=== PATIENT | female | born 1930 | race Caucasian/White ===

== ENCOUNTER → 2017-03-26 | Outpatient (CLI) | payer OTHER ==
[~2017-03-26] MED LIST: ACET-1311 PO; ASPCH81X PO; ATOR-24 PO; ATRINS NEB; BENZ1LOZ PO; CALC250T2 PO; CHOL100010 PO; CLIN150C PO; CYCL0.05 OPB; GEMF600T3 PO; GUAI1TAB55 PO; LEVO1TAB35 PO; LEVO50TA6 PO; LISI-789 PO; LSN25 PO; MAGN64TA4 PO; METO25TA56 PO; MISCCAP80 PO; MOME100A INH; MULTCHW PO; MULTTAB52 PO; NTRGSL/4 UT; NXM/40 PO; OMEG10007 PO; OYST1TAB PO; PLV75 PO; POLY335040 PO; PRED-301 PO; PRLSR20 PO; SALI0.657 NAE; SENN1TAB65 PO; SLWMEC PO; TIOT1AER2 INH; TRAM-10 PO; VALA1TAB PO; VENL-273 PO; VENL37.593 PO
[2017-03-26 01:40] LABS: URINE APPEARANCE CLOUDY (CLEAR); URINE BILIRUBIN NEG (NEG); URINE COLOR YELLOW; URINE EPITHELIAL CELL AUTO 20-30 /lpf (0-5); URINE NITRITE NEG (NEG); URINE PH >= 9.0 (4.5-7.5); URINE SPECIFIC GRAVITY 1.015 (1.000-1.030); UROBILINOGEN NEG (NEG)
[2017-03-26 01:42] LABS: MANUAL MICROSCOPIC REQUIRED? NO; REVIEW REQ? NO
== END ==
LOC: C.LABCC 12:50
PROVIDERS: ATTEND Internal Medicine
DX: R35.0 Frequency of micturition (principal); R30.0 Dysuria

== ENCOUNTER → 2017-06-15 | Outpatient (CLI) | payer OTHER ==
[~2017-06-15] MED LIST changes: -ACET-1311 PO; -CALC250T2 PO; +CYCL0.05 OP; -CYCL0.05 OPB; -GUAI1TAB55 PO; -LEVO1TAB35 PO; -LEVO50TA6 PO; -LISI-789 PO; -MAGN64TA4 PO; -MULTTAB52 PO; -NTRGSL/4 UT; -PRLSR20 PO; -SALI0.657 NAE; -SENN1TAB65 PO; -TIOT1AER2 INH; -VENL37.593 PO
[2017-06-15 13:29] LABS: URINE APPEARANCE TURBID (CLEAR); URINE BILIRUBIN NEG (NEG); URINE COLOR YELLOW; URINE EPITHELIAL CELL AUTO 0-5 /lpf (0-5); URINE NITRITE NEG (NEG); URINE PH 6.5 (4.5-7.5); URINE SPECIFIC GRAVITY 1.013 (1.000-1.030); UROBILINOGEN NEG (NEG)
[2017-06-15 13:37] LABS: MANUAL MICROSCOPIC REQUIRED? NO; REVIEW REQ? YES
== END ==
LOC: C.LABCC 12:29
PROVIDERS: ATTEND Internal Medicine
DX: R30.0 Dysuria (principal)

== ENCOUNTER → 2017-08-25 | Outpatient (CLI) | payer OTHER ==
[2017-08-25 10:02] LABS: ALT/SGPT 27 U/L (12-78); BLOOD UREA NITROGEN 17 mg/dl (7-18); BUN/CREATININE RATIO 24.6 (10-20); CALCIUM 9.1 mg/dl (8.5-10.1); CARBON DIOXIDE 28 mmol/L (21-32); CHLORIDE 105 mmol/L (98-107); GLUCOSE 112 mg/dl (70-99); POTASSIUM 4.1 mmol/L (3.5-5.1); SODIUM 140 mmol/L (136-145)
[2017-08-25 10:05] LABS: ALB/GLOB RATIO 0.7 (0.9-2); ALKALINE PHOSPHATASE 80 U/L (45-117); AST/SGOT 16 U/L (15-37)
== END ==
LOC: C.LABCC 08:58
PROVIDERS: ATTEND Internal Medicine
DX: I10 Essential (primary) hypertension (principal)

== ENCOUNTER → 2017-08-27 | Outpatient (CLI) | payer OTHER ==
[2017-08-27 08:14] LABS: BASO % 0.4 %; BASO ABS # 0.03 K/uL (0-0.2); COMPLETE YES; EOS % 5.4 %; HEMATOCRIT 37.7 % (37-47); IG% 0.3 %; LYMPH % 22.6 %; LYMPH ABS # 1.51 K/uL (1.2-3.4); MEAN CELL VOLUME 81.4 fL (80-100); MEAN CORPUSCULAR HEMOGLOBIN 24.4 pg (25-34); MEAN PLATELET VOLUME 10.2 fL (7.4-10.4); MONO % 7.8 %; NEUT % 63.5 %; PLATELET COUNT 328 K/uL (130-400); RED BLOOD COUNT 4.63 M/uL (4.2-5.4); WHITE BLOOD COUNT 6.67 K/uL (4.8-10.8)
[2017-08-27 08:22] LABS: ALT/SGPT 30 U/L (12-78); BLOOD UREA NITROGEN 16 mg/dl (7-18); BUN/CREATININE RATIO 21.6 (10-20); CALCIUM 9.2 mg/dl (8.5-10.1); CARBON DIOXIDE 27 mmol/L (21-32); CHLORIDE 105 mmol/L (98-107); CHOLESTEROL 134 mg/dl (0-200); CREATININE 0.76 mg/dl (0.60-1.20); GLUCOSE 113 mg/dl (70-99); POTASSIUM 4.2 mmol/L (3.5-5.1); SODIUM 141 mmol/L (136-145)
[2017-08-27 08:32] LABS: ALB/GLOB RATIO 0.7 (0.9-2); ALKALINE PHOSPHATASE 98 U/L (45-117); AST/SGOT 20 U/L (15-37); HDL CHOLESTEROL 45 mg/dl; LDL CHOLESTEROL CALCULATED 53 mg/dl; TRIGLYCERIDES 180 mg/dl (0-150); VERY LOW DENSITY LIPOPROT CALC 36 mg/dl
== END ==
LOC: C.LABCC 07:43
PROVIDERS: ATTEND Internal Medicine
DX: E78.5 Hyperlipidemia, unspecified (principal); I25.10 Atherosclerotic heart disease of native coronary artery without angina pectoris

== ENCOUNTER 2017-10-09 01:20 | Inpatient (IN) | payer OTHER ==
[~2017-10-09] VITALS: Ht 152.4 cm; Wt 70.6 kg
[~2017-10-09 01:20] MED LIST changes: -CYCL0.05 OP; +CYCL0.05 OPB
--- NOTE | 2017-10-09 02:39 | EMERGENCY ROOM VISIT NOTE ---
History Report prepared by Samaria: Masoud Sawant Under the Supervision of: Dr. Hazel Guerrero D.O. First contact with patient: 02:20 Chief Complaint: VOMITING Stated Complaint: COUGHING UP BLOOD Nursing Triage Summary: Coughed up a small amount of blood tonight. History of Present Illness The patient is a 87 year old female who presents to the Emergency Room with complaints of hemoptysis that began this morning. Yesterday, the patient was feeling at baseline. However, further in day she began to feel nauseated. She then began to cough up blood and had one episode of vomiting after her coughing spell. Her hemoptysis has been persistent since. She denies any fevers, chills, chest pain, shortness of breath, or abdominal pain. She has past medical history of pneumonia and a previous [place]. She also is having left calf pain. She denies any history of blood clots in her legs or lungs. Source of History: patient Onset: this morning Position: other (Respiratory System) Symptom Intensity: moderate Quality: other (Hemoptysis) Timing: other (Persistent) Associated Symptoms: + nausea, + vomiting, No fevers, No chills, No chest pain, No SOB, No abdominal pain Note: She has left calf tenderness. Review of Systems See HPI for pertinent positives & negatives. A total of 10 systems reviewed and were otherwise negative. Past Medical & Surgical Medical Problems: (1) ACS (acute coronary syndrome) (2) Chest tightness (3) Irritable bowel syndrome (4) Pneumonia (5) Rheumatoid arthritis (6) SVT (supraventricular tachycardia) (7) Vertigo Family History Cancer FHx: hypertension Heart disease Social History Smoking Status: Never Smoker Smokeless Tobacco Use: No Drug Use: none Marital Status: single Housing Status: lives with family Occupation Status: retired Current/Historical Medications Scheduled Acetaminophen (Tylenol), 650 MG PO QPM Aspirin (Aspirin Chewable), 81 MG PO DAILY Atorvastatin (Lipitor), 40 MG PO DAILY Calcium Carbonate-Vitamin D (Oyst-Phillip D), 1 TAB PO DAILY Cyclosporine Oph 0.05% (Restasis Oph 0.05%), 1 DROP OPB AMHS Guaifenesin Ext Rel (Mucinex Ext Rel), 600 MG PO Q12 Levothyroxine Sodium (Levothyroxine Sodium), 50 MCG PO DAILY Lisinopril (Zestril), 2.5 MG PO DAILY Magnesium Chloride (Mag64), 535 MG PO BID Metoprolol Tartrate (Lopressor) (Lopressor), 25 MG PO BID Mometasone Furoate-Formoterol (Dulera 100/5 Mcg), 2 PUFFS INH BID Multiple Vitamins W/ Minerals (Cerovite Senior), 1 TAB PO DAILY Nitroglycerin (Nitrostat), 0.4 MG UT PRN Omeprazole (Prilosec), 20 MG PO BID Polyethylene (Miralax Powder Packet), 17 GM PO Q2D Saline ([place]), 1 SPRY IRVING PRN Sennosides-Docusate Sodium (Senna Plus), 1 TAB PO BID Tiotropium [place] (Spiriva Respimat), 2 PUFFS INH QD Venlafaxine Hcl (Venlafaxine Extended Rel), 37.5 MG PO DAILY Scheduled PRN Acetaminophen (Tylenol), 650 MG PO Q8 PRN for MILD PAIN Allergies Coded Allergies: Penicillins (Verified Allergy, Unknown, HIVES, cefepime/rocephin in past ok, 01/18/16) Terfenadine (Verified Allergy, Unknown, 01/17/16) Physical Exam Vital Signs Date Time Temp Pulse Resp B/P (MAP) Pulse Ox O2 Delivery O2 Flow Rate FiO2 10/09/17 07:03 93 18 129/69 91 Nasal Cannula 2.0 10/09/17 05:25 96 20 145/68 95 Nasal Cannula 2.0 10/09/17 03:49 89 16 120/46 95 Nasal Cannula 2.0 10/09/17 02:34 88 21 124/65 95 Nasal Cannula 2.0 10/09/17 01:35 96 Nasal Cannula 2.0 10/09/17 01:35 91 Room Air 10/09/17 01:27 37.1 97 24 138/67 91 Nasal Cannula 2.0 10/09/17 01:25 94 Physical Exam HEENT: Head - normocephalic and atraumatic Pupils are equal, round, and reactive to light. Extraocular eye muscles are intact, and sclera are anicteric. Nose - moist nasal mucosa without discharge. Mouth - moist buccal mucosa. Oropharynx is nonerythematous and there is no tonsillar exudate or edema noted. Neck: Supple; no JVD, nuchal rigidity, cervical lymphadenopathy. Heart: Regular rate and rhythm. There is a normal S1 and S2 with no murmurs, clicks, or gallops appreciated. Lungs: Diminished breath sounds to the entire right lung with rhonchi to the right lung base. Abdomen: Soft, completely nontender, nondistended, with good bowel sounds. There are no palpable pulsatile masses or hepatosplenomegaly. There is no guarding, rigidity, or rebound noted. Extremities: Tenderness to the left calf. No evidence of cyanosis, clubbing, or edema. There are easily palpable peripheral pulses. Skin: warm and dry with good turgor and no rashes. Medical Decision & Procedures ER Provider Diagnostic Interpretation: Radiology results as stated below per my review and the radiologist's interpretation: CHEST 2 VIEWS ROUTINE CLINICAL HISTORY: 87 years-old Female presenting with eval for pneumonia. TECHNIQUE: Portable upright AP view of the chest was obtained. COMPARISON: 01/17/2016. FINDINGS: Atherosclerosis of aortic arch. Cardiac silhouette normal in size. Bandlike opacities at the perihilar right lung and left lung base not definitely changed from prior. Suggestion of minimal increased opacity at the paramediastinal right lung base. Increased opacity also suggested at the right apex Overall mildly low lung volumes with hypoventilatory changes. Degenerative changes of the left glenohumeral joint and spine with scoliotic curvature. Upper abdomen normal. IMPRESSION: 1. Chronic right perihilar and left basilar opacities likely scarring. However, apparent new right paramediastinal basilar opacity raises concern for new consolidation/pneumonia. Right apical opacity may represent scarring. 2. Mildly low lung volumes. Electronically signed by: Thee Thorpe M.D. 10/09/2017 7:12 AM Dictated Date/Time: 10/09/2017 7:09 AM US VENOUS LEFT LOWER EXTREMITY: No evidence of deep venous thrombosis. Limited evaluation of calf vessels. Radiologist: Sugey Stephens M.D. CTA CHEST: Compared to 01/18/16. No evidence of pulmonary embolism or aortic dissection. Patchy bilateral scarring/atelectasis or pneumonitis. Mild peribronchial thickening. Areas of consolidation may be related to atelectasis or pneumonia. Followup imaging to exclude underlying mass if indicated. No pneumothorax or pleural effusion. Nonspecific mediastinal and hilar lymph nodes. Moderate hiatal hernia. Distended gallbladder with gallstones. Thyroid nodules. Radiologist: Sugey Stephens M.D. Laboratory Results 10/09/17 01:30 Red Blood Count 4.21, Mean Corpuscular Volume 79.8, Mean Corpuscular Hemoglobin 24.7, Mean Corpuscular Hemoglobin Concent 31.0, Mean Platelet Volume 10.4, Neutrophils (%) (Auto) 81.3, Lymphocytes (%) (Auto) 9.3, Monocytes (%) (Auto) 6.5, Eosinophils (%) (Auto) 2.5, Basophils (%) (Auto) 0.1, Neutrophils # (Auto) 8.44, Lymphocytes # (Auto) 0.97, Monocytes # (Auto) 0.68, Eosinophils # (Auto) 0.26, Basophils # (Auto) 0.01 10/09/17 01:30 Test 10/09/17 01:30 10/09/17 02:54 White Blood Count 10.39 K/uL (4.8-10.8) Red Blood Count 4.21 M/uL (4.2-5.4) Hemoglobin 10.4 g/dL (12.0-16.0) Hematocrit 33.6 % (37-47) Mean Corpuscular Volume 79.8 fL (80-100) Mean Corpuscular Hemoglobin 24.7 pg (25-34) Mean Corpuscular Hemoglobin Concent 31.0 g/dl (32-36) Platelet Count 254 K/uL (130-400) Mean Platelet Volume 10.4 fL (7.4-10.4) Neutrophils (%) (Auto) 81.3 % Lymphocytes (%) (Auto) 9.3 % Monocytes (%) (Auto) 6.5 % Eosinophils (%) (Auto) 2.5 % Basophils (%) (Auto) 0.1 % Neutrophils # (Auto) 8.44 K/uL (1.4-6.5) Lymphocytes # (Auto) 0.97 K/uL (1.2-3.4) Monocytes # (Auto) 0.68 K/uL (0.11-0.59) Eosinophils # (Auto) 0.26 K/uL (0-0.5) Basophils # (Auto) 0.01 K/uL (0-0.2) RDW Standard Deviation 53.7 fL (36.4-46.3) RDW Coefficient of Variation 18.4 % (11.5-14.5) Immature Granulocyte % (Auto) 0.3 % Immature Granulocyte # (Auto) 0.03 K/uL (0.00-0.02) Anion Gap 7.0 mmol/L (3-11) Est Creatinine Clear Calc Drug Dose 1.9 ml/min Estimated GFR () 91.2 Estimated GFR (Non- 78.7 BUN/Creatinine Ratio 25.2 (10-20) Calcium Level 8.4 mg/dl (8.5-10.1) Total Bilirubin 0.4 mg/dl (0.2-1) Aspartate Amino Transf (AST/SGOT) 20 U/L (15-37) Alanine Aminotransferase (ALT/SGPT) 31 U/L (12-78) Alkaline Phosphatase 92 U/L (45-117) Troponin I < 0.015 ng/ml (0-0.045) Pro-B-Type Natriuretic Peptide 197 pg/ml (0-1800) Total Protein 6.6 gm/dl (6.4-8.2) Albumin 2.8 gm/dl (3.4-5.0) Globulin 3.8 gm/dl (2.5-4.0) Albumin/Globulin Ratio 0.7 (0.9-2) D-Dimer 1730 ug/L FEU (0-500) Laboratory results per my review. Medications Administered Medications (Trade) Dose Ordered Sig/Jose Route Start Time Stop Time Status Last Admin Dose Admin Levofloxacin (Levaquin / D5W) 750 mg NOW STAT IV 10/09/17 06:48 10/09/17 06:49 DC 10/09/17 06:59 750 MG Procedure Levofloxacin 750 mg IV ED Course 0220: Past medical records reviewed. The patient was evaluated in room A2. A complete history and physical exam was performed. The patient had chest x-ray. The patient had evidence of pneumonia on chest x-ray but continued with hemoptysis and had a positive d-dimer. She went for CT scan of her chest 0336: I reassessed the patient at this time. She is more comfortable at this time. 0648: I reviewed the results of the CT with the patient and her family. Ordered Levofloxacin 750 mg IV 0721: Upon reevaluation, I discussed findings and results with her. She verbalized agreement of the treatment plan. I spoke with Dr. Anglin of the [place] [facility]. The patient will be evaluated for further management and care. Medical Decision The patient is a 87 year old female who presents to the ED with hemoptysis. Differential diagnosis includes pneumonia, bronchitis, pulmonary embolism, sepsis, and DVT. Laboratory Results: No leukocytosis, hemoglobin 10.4, normal platelet count, normal renal function, glucose 114, normal LFTs, D-DIMER 1730. The patient presents to the emergency department with a sudden onset of hemoptysis and a productive cough of yellow sputum. Patient has a history of bronchiectasis and previous episodes of pneumonia. The patient remained hemolytically stable. However, I felt she would benefit from IV antibiotics and close monitoring. I discussed the case with the [facility] Hospitalist and they will evaluate for further management. Medication Reconcilliation Current Medication List: was personally reviewed by me Blood Pressure Screening Patient's blood pressure: Normal blood pressure Blood pressure disposition: Did not require urgent referral Consults Time Called: 619 Consulting Physician: Dr. Anglin - [facility] [place] Returned Call: 06 Discussed the patient's case. The patient will be evaluated for further management. Impression Primary Impression: Bilateral pneumonia Additional Impression: Bronchiectasis Scribe Attestation The scribe's documentation has been prepared under my direction and personally reviewed by me in its entirety. I confirm that the note above accurately reflects all work, treatment, procedures, and medical decision making performed by me. Departure Information Dispostion Being Evaluated By Hospitalist Referrals [facility] (PCP) Patient Instructions My [facility] Problem Qualifiers Primary Impression: Bilateral pneumonia Pneumonia type: due to unspecified organism Lung location: lower lobe of lung Qualified Codes: J18.9 - Pneumonia, unspecified organism Additional Impression: Bronchiectasis Bronchiectasis type: uncomplicated Qualified Codes: J47.9 - Bronchiectasis, uncomplicated
[2017-10-09 02:43] LABS: BASO % 0.1 %; BASO ABS # 0.01 K/uL (0-0.2); COMPLETE YES; EOS % 2.5 %; HEMATOCRIT 33.6 % (37-47); IG% 0.3 %; LYMPH % 9.3 %; LYMPH ABS # 0.97 K/uL (1.2-3.4); MEAN CELL VOLUME 79.8 fL (80-100); MEAN CORPUSCULAR HEMOGLOBIN 24.7 pg (25-34); MEAN PLATELET VOLUME 10.4 fL (7.4-10.4); MONO % 6.5 %; NEUT % 81.3 %; PLATELET COUNT 254 K/uL (130-400); RED BLOOD COUNT 4.21 M/uL (4.2-5.4); WHITE BLOOD COUNT 10.39 K/uL (4.8-10.8)
[2017-10-09 02:52] LABS: ALT/SGPT 31 U/L (12-78); AST/SGOT 20 U/L (15-37); BLOOD UREA NITROGEN 16 mg/dl (7-18); BUN/CREATININE RATIO 25.2 (10-20); CALCIUM 8.4 mg/dl (8.5-10.1); CARBON DIOXIDE 27 mmol/L (21-32); CHLORIDE 104 mmol/L (98-107); CREATININE 0.65 mg/dl (0.60-1.20); GLUCOSE 114 mg/dl (70-99); POTASSIUM 4.2 mmol/L (3.5-5.1); SODIUM 138 mmol/L (136-145)
[2017-10-09 02:57] LABS: ALB/GLOB RATIO 0.7 (0.9-2); ALKALINE PHOSPHATASE 92 U/L (45-117)
[2017-10-09] MEDS ORDERED: SALI0.657 NAE (03:10)
[2017-10-09] MEDS ORDERED: SENN1TAB65 PO (03:11)
[2017-10-09] MEDS ORDERED: TIOT1AER2 INH (03:12)
[2017-10-09] MEDS ORDERED: VENL37.593 PO (03:13)
[2017-10-09] MEDS ORDERED: GUAI1TAB55 PO (03:14)
[2017-10-09] MEDS ORDERED: NTRGSL/4 UT (03:15)
[2017-10-09] MEDS ORDERED: PRLSR20 PO (03:16)
[2017-10-09] MEDS ORDERED: CALC250T2 PO (03:18)
[2017-10-09] MEDS ORDERED: LEVO50TA6 PO (03:22)
[2017-10-09] MEDS ORDERED: LISI-789 PO (03:23)
[2017-10-09] MEDS ORDERED: MAGN64TA4 PO (03:25)
[2017-10-09] MEDS ORDERED: ACET-1311 PO ×2 (03:29→03:39)
[2017-10-09] MEDS ORDERED: MULTTAB52 PO (03:35)
[2017-10-09] MEDS ORDERED: OPTIRAY 320 IV PRN (03:45)
[2017-10-09] MEDS ORDERED: LEVAQUIN 750MG / 150ML D5W IV STA (06:48)
--- NOTE | 2017-10-09 07:13 | DIAGNOSTIC IMAGING REPORT ---
CHEST 2 VIEWS ROUTINE CLINICAL HISTORY: 87 years-old Female presenting with eval for pneumonia. TECHNIQUE: Portable upright AP view of the chest was obtained. COMPARISON: 01/17/2016. FINDINGS: Atherosclerosis of aortic arch. Cardiac silhouette normal in size. Bandlike opacities at the perihilar right lung and left lung base not definitely changed from prior. Suggestion of minimal increased opacity at the paramediastinal right lung base. Increased opacity also suggested at the right apex Overall mildly low lung volumes with hypoventilatory changes. Degenerative changes of the left glenohumeral joint and spine with scoliotic curvature. Upper abdomen normal. IMPRESSION: 1. Chronic right perihilar and left basilar opacities likely scarring. However, apparent new right paramediastinal basilar opacity raises concern for new consolidation/pneumonia. Right apical opacity may represent scarring. 2. Mildly low lung volumes. Electronically signed by: Thee Thorpe M.D. 10/09/2017 7:12 AM Dictated Date/Time: 10/09/2017 7:09 AM
--- NOTE | 2017-10-09 07:49 | DIAGNOSTIC IMAGING REPORT ---
L VENOUS DOPP LOWER EXT UNILAT CLINICAL HISTORY: 87 years-old Female presenting with eval for dvt. TECHNIQUE: Real-time grayscale and color and spectral Doppler ultrasound imaging of the veins of the left lower extremity was performed. Compression and augmentation were also utilized. COMPARISON: 02/09/2011. FINDINGS: Left: Common femoral vein: Patent. Femoral vein: Patent. Greater saphenous vein: Patent. Popliteal vein: Patent. Calf veins: Limited visualization. Other: None. IMPRESSION: No evidence of deep venous thrombosis. Electronically signed by: Thee Thorpe M.D. 10/09/2017 7:47 AM Dictated Date/Time: 10/09/2017 7:46 AM
[2017-10-09] MEDS ORDERED: ALUMINUM/MAGNESIUM/SIMETH (MAALOX MAX) 30 ML UDC PO PRN (08:15)
[2017-10-09] MEDS ORDERED: ACETAMINOPHEN 325 MG TAB PO PRN (08:15)
[2017-10-09] MEDS ORDERED: MAGNESIUM HYDROXIDE SUSP 30 ML UDC PO PRN (08:15)
[2017-10-09] MEDS ORDERED: ONDANSETRON INJ 2 MG/ML 2 ML VIAL IV PRN (08:15)
[2017-10-09] MEDS ORDERED: POLYETHYLENE (MIRALAX) 17 GM PACK PO PRN (08:15)
[2017-10-09] MEDS ORDERED: CEFEPIME IV 2,000 MG in DEXTROSE 5% 100ML 100 ML IV SCH (08:30)
[2017-10-09] MEDS ORDERED: ALBUT/IPRATROP 3MG/0.5MG NEB 3 ML VIAL INH PRN (08:45)
--- NOTE | 2017-10-09 08:50 | DIAGNOSTIC IMAGING REPORT ---
(CHEST FOR PE) ANGIO WITH CLINICAL HISTORY: 87 years-old Female presenting with coughing up blood, clinical concern for pulmonary embolus.. TECHNIQUE: Multidetector CT angiography of the chest was performed after administration of intravenous contrast. 3-D volumetric and/or maximum intensity projection (MIP) images were subsequently reconstructed for review. IV contrast: 90 mL of Optiray 320. A dose lowering technique was used consistent with the principles of ALARA (as low as reasonably achievable). COMPARISON: 01/18/2016. CT DOSE (mGy.cm): The estimated cumulative dose is 501.15 mGy.cm. FINDINGS: [facility] topogram: Unremarkable. Pulmonary vasculature: The study is adequate for assessment of the pulmonary vascular tree. No filling defect within the pulmonary arteries to suggest embolus. Main pulmonary artery is not enlarged. No flattening of the interventricular septum. No intracardiac intracardiac filling defect. No reflux of contrast into the hepatic veins. Remaining chest: On soft tissue windows, subcentimeter hypodense nodule in the right lobe of the thyroid. Subcentimeter calcified nodule in the left lobe of the thyroid. Multiple prominent subcentimeter mediastinal lymph nodes. Few prominent hilar lymph nodes also noted. Atherosclerosis of the aorta. Coronary artery calcification. Normal heart size. No pericardial or pleural effusion. Hepatic steatosis. Cholelithiasis. Moderate hiatal hernia. Debris noted in the esophagus. On lung windows, dependent nodular, groundglass, and reticular opacities. Bronchial wall thickening dependently. Scattered debris in subsegmental airways. On bone windows, degenerative changes of the bilateral glenohumeral joints, left greater than right. IMPRESSION: 1. No evidence of pulmonary embolus. 2. Dependent opacities with bronchial wall thickening raise concern for chronic aspiration. Given the nodular appearance of the dependent opacities, follow-up is recommended to exclude an underlying pulmonary neoplastic nodule. 3. Moderate hiatal hernia and debris in the esophagus. 4. Hepatic steatosis. 5. Cholelithiasis. Electronically signed by: Thee Thorpe M.D. 10/09/2017 8:48 AM Dictated Date/Time: 10/09/2017 8:40 AM
--- NOTE | 2017-10-09 09:08 | History and Physical ---
History & Physical Date & Time of Service: Oct 09, 2017 at 08:38 Chief Complaint: Coughing Up Blood Primary Care Physician: Vitor Johnson M.D. History of Present Illness Source: patient, family (daughters at bedside), hospital records, [facility] ([facility]) This is an 87 y/o female with a history of CAD, STEMI s/p stent in 2014, HTN, HLD, h/o SVT, interstitial lung disease, bronchiectasis, COPD, RA, IBS, hypothyroidism, anxiety/depression, and GERD who presented to the ED on 10/09 with hemoptysis and nausea. The patient states that she had been in her normal health yesterday throughout the day until she developed some nausea last night, followed by hemoptysis with bright red blood. She denies this ever happening before, but one of her daughter states that she does occasionally cough up blood , and [facility] records state that she also had hemoptysis in May 2017. The patient says that she is no longer coughing up blood, but she is now coughing up green sputum. She denies any fevers, chills, sweats, chest pain, or shortness of breath. She wears 2L NC continuously. The patient denies fevers, chills, sweats, chest pain, palpitations, claudication, wheezing, shortness of breath, vomiting, abdominal pain, dysuria, hematuria, urinary retention, paralysis, weakness, numbness and tingling. Past Medical/Surgical History Medical Problems: (1) Irritable bowel syndrome Status: Chronic (2) Rheumatoid arthritis Status: Chronic (3) Vertigo Status: Chronic CAD STEMI s/p stent in LAD 2014 HTN HLD SVT ILD Bronchiectasis COPD RA IBS Hypothyroidism Anxiety/depression GERD Family History Cancer (breast) Heart disease Hypertension Lung disease Myocardial infarction Social History Smoking Status: Never Smoker Smokeless Tobacco Use: No Alcohol Use: none Drug Use: none Marital Status: single Housing status: [facility] Occupational Status: retired Immunizations History of Influenza Vaccine: Yes Influenza Vaccine Date: Sep 11, 2010 History of Tetanus Vaccine?: No History of Pneumococcal: Yes Pneumococcal Date: Aug 17, 2012 History of Hepatitis B Vaccine: No Multi-Drug Resistant Organisms History of MDRO: No Allergies Coded Allergies: Penicillins (Verified Allergy, Unknown, HIVES, cefepime/rocephin in past ok, 01/18/16) Terfenadine (Verified Allergy, Unknown, 01/17/16) Home Medications Scheduled Acetaminophen (Tylenol), 650 MG PO QPM Aspirin (Aspirin Chewable), 81 MG PO DAILY Atorvastatin (Lipitor), 40 MG PO DAILY Calcium Carbonate-Vitamin D (Oyst-Phillip D), 1 TAB PO DAILY Cyclosporine Oph 0.05% (Restasis Oph 0.05%), 1 DROP OPB AMHS Guaifenesin Ext Rel (Mucinex Ext Rel), 600 MG PO Q12 Levothyroxine Sodium (Levothyroxine Sodium), 50 MCG PO DAILY Lisinopril (Zestril), 2.5 MG PO DAILY Magnesium Chloride (Mag64), 535 MG PO BID Metoprolol Tartrate (Lopressor) (Lopressor), 25 MG PO BID Mometasone Furoate-Formoterol (Dulera 100/5 Mcg), 2 PUFFS INH BID Multiple Vitamins W/ Minerals (Cerovite Senior), 1 TAB PO DAILY Nitroglycerin (Nitrostat), 0.4 MG UT PRN Omeprazole (Prilosec), 20 MG PO BID Polyethylene (Miralax Powder Packet), 17 GM PO Q2D Saline ([place]), 1 SPRY IRVING PRN Sennosides-Docusate Sodium (Senna Plus), 1 TAB PO BID Tiotropium Normangee (Spiriva Respimat), 2 PUFFS INH BID Venlafaxine Hcl (Venlafaxine Extended Rel), 37.5 MG PO DAILY Scheduled PRN Acetaminophen (Tylenol), 650 MG PO Q8 PRN for MILD PAIN Review of Systems Constitutional: No fever, No chills, No sweats, No weakness, No fatigue Eyes: No worsening of vision, No eye pain, No diplopia ENT: No hearing loss, No nasal symptoms, No trouble swallowing Respiratory: + cough, + sputum, + hemoptysis, No wheezing, No shortness of breath Cardiovascular: No chest pain, No claudication, No palpitations Abdomen: + nausea, + problem reported (reports rectal prolapse and chronic bright red blood per rectum), No pain, No vomiting Musculoskeletal: No joint pain, No muscle pain, No swelling Genitourinary - Female: No dysuria, No urinary retention, No hematuria Neurologic: No paralysis, No weakness, No numbness/tingling Integumentary: No rash, No itch, No color change Physical Exam Vital Signs Date Time Temp Pulse Resp B/P (MAP) Pulse Ox O2 Delivery O2 Flow Rate FiO2 10/09/17 07:03 93 18 129/69 91 Nasal Cannula 2.0 10/09/17 05:25 96 20 145/68 95 Nasal Cannula 2.0 10/09/17 03:49 89 16 120/46 95 Nasal Cannula 2.0 10/09/17 02:34 88 21 124/65 95 Nasal Cannula 2.0 10/09/17 01:35 96 Nasal Cannula 2.0 10/09/17 01:35 91 Room Air 10/09/17 01:27 37.1 97 24 138/67 91 Nasal Cannula 2.0 10/09/17 01:25 94 General appearance: Well-developed, well-nourished, no apparent distress Head: Normocephalic, atraumatic Eyes: Normal inspection, PERRL, EOMI ENT: Normal ENT inspection, hearing grossly normal, pharynx normal Neck: Supple, no JVD, trachea midline Respiratory/Chest: +Crackles in bases bilaterally. Normal breath sounds, no respiratory distress Cardiovascular: +Tachycardic. Regular rhythm, no gallop, no murmur Abdomen/GI: Normal bowel sounds, non-tender, soft Extremities/Musculoskeletal: Normal inspection, no calf tenderness, no pedal edema Neurological/Psych: Alert, normal mood/affect, oriented x 3 Skin: Normal color, warm/dry, no rash Diagnostics Laboratory Results Results Past 24 Hours Test 10/09/17 01:30 10/09/17 02:54 Range/Units White Blood Count 10.39 4.8-10.8 K/uL Red Blood Count 4.21 4.2-5.4 M/uL Hemoglobin 10.4 12.0-16.0 g/dL Hematocrit 33.6 37-47 % Mean Corpuscular Volume 79.8 80-100 fL Mean Corpuscular Hemoglobin 24.7 25-34 pg Mean Corpuscular Hemoglobin Concent 31.0 32-36 g/dl Platelet Count 254 130-400 K/uL Mean Platelet Volume 10.4 7.4-10.4 fL Neutrophils (%) (Auto) 81.3 % Lymphocytes (%) (Auto) 9.3 % Monocytes (%) (Auto) 6.5 % Eosinophils (%) (Auto) 2.5 % Basophils (%) (Auto) 0.1 % Neutrophils # (Auto) 8.44 1.4-6.5 K/uL Lymphocytes # (Auto) 0.97 1.2-3.4 K/uL Monocytes # (Auto) 0.68 0.11-0.59 K/uL Eosinophils # (Auto) 0.26 0-0.5 K/uL Basophils # (Auto) 0.01 0-0.2 K/uL RDW Standard Deviation 53.7 36.4-46.3 fL RDW Coefficient of Variation 18.4 11.5-14.5 % Immature Granulocyte % (Auto) 0.3 % Immature Granulocyte # (Auto) 0.03 0.00-0.02 K/uL Sodium Level 138 136-145 mmol/L Potassium Level 4.2 3.5-5.1 mmol/L Chloride Level 104 98-107 mmol/L Carbon Dioxide Level 27 21-32 mmol/L Anion Gap 7.0 3-11 mmol/L Blood Urea Nitrogen 16 7-18 mg/dl Creatinine 0.65 0.60-1.20 mg/dl Est Creatinine Clear Calc Drug Dose 1.9 ml/min Estimated GFR () 91.2 Estimated GFR (Non- 78.7 BUN/Creatinine Ratio 25.2 10-20 Random Glucose 114 70-99 mg/dl Calcium Level 8.4 8.5-10.1 mg/dl Total Bilirubin 0.4 0.2-1 mg/dl Aspartate Amino Transf (AST/SGOT) 20 15-37 U/L Alanine Aminotransferase (ALT/SGPT) 31 12-78 U/L Alkaline Phosphatase 92 45-117 U/L Troponin I < 0.015 0-0.045 ng/ml Pro-B-Type Natriuretic Peptide 197 0-1800 pg/ml Total Protein 6.6 6.4-8.2 gm/dl Albumin 2.8 3.4-5.0 gm/dl Globulin 3.8 2.5-4.0 gm/dl Albumin/Globulin Ratio 0.7 0.9-2 D-Dimer 1730 0-500 ug/L FEU Diagnostic Radiology Reviewed the following studies and agree with interpretation as follows: Patient Name: KVNG NAVA Unit Number: [id number] Dictated: 10/09/17708 Transcribed: 10/09/17708 PBS Printed Date/Time: [~ rep prt dt]/[~ rep prt tm] [~ rep ct labl] - [~ rep ct ivnm] [facility] [place] [address] Dictated: 10/09/17708 Transcribed: 10/09/17708 PBS Printed Date/Time: [~ rep prt dt]/[~ rep prt tm] [~ rep ct labl] - [~ rep ct ivnm] Patient: KVNG NAVA Address1: [address] Rec: [id number] Address2: Acct ID: [id number] [facility] Zip: [place] [address] Date: 1930 Sex: F Room/Bed: Ref Phy: [facility] SC: ISABELL Att Phy: Report #: [id number] Ines Phy: Vitor Johnson M.D. Test: CXR Admit Phy: Chief Digital Officer: FORTUNATO Interpreting Phy: Thee Thorpe MD Diagnosis: COUGHING UP BLOOD Ordering Phy: Hazel Guerrero D.O. Service Date: 10/09/17 Admit Date: 10/09/17 MNE: [id number] CONF: DICTATED BY: Thee Thorpe MD]] CC: Hazel Guerrero D.O. [facility] Vitor Johnson M.D. Endcc: [~ rep ct add3]] CHEST 2 VIEWS ROUTINE CLINICAL HISTORY: 87 years-old Female presenting with eval for pneumonia. TECHNIQUE: Portable upright AP view of the chest was obtained. COMPARISON: 01/17/2016. FINDINGS: Atherosclerosis of aortic arch. Cardiac silhouette normal in size. Bandlike opacities at the perihilar right lung and left lung base not definitely changed from prior. Suggestion of minimal increased opacity at the paramediastinal right lung base. Increased opacity also suggested at the right apex Overall mildly low lung volumes with hypoventilatory changes. Degenerative changes of the left glenohumeral joint and spine with scoliotic curvature. Upper abdomen normal. IMPRESSION: 1. Chronic right perihilar and left basilar opacities likely scarring. However, apparent new right paramediastinal basilar opacity raises concern for new consolidation/pneumonia. Right apical opacity may represent scarring. 2. Mildly low lung volumes. Electronically signed by: Thee Thorpe M.D. 10/09/2017 7:12 AM Dictated Date/Time: 10/09/2017 7:09 AM The status of this report is Signed. Draft = Not yet reviewed or approved by Radiologist. Signed = Reviewed and approved by Radiologist. <AttendingPhy></AttendingPhy> <FamilyPhy>[facility]</FamilyPhy> <PrimaryPhy> Vitor Johnson M.D.</PrimaryPhy> <UnitNumber>[id number]</UnitNumber> < VisitNumber>[id number]</VisitNumber> <PatientName>KVNG NAVA</PatientName > <DateOfBirth>1930</DateOfBirth> <Location>[facility]</Location> <ServiceDate> 10/09/17</ServiceDate> <MNE>ESINDI</MNE> <OrderingPhy>Hazel Guerrero DBertrand</ OrderingPhy> <OrderingPhyMNE>f rep ord dr morrow</OrderingPhyMNE> <DictatingPhyMNE> f rep dict dr morrow</DictatingPhyMNE> <CCListMNE>f rep ct cristhian</CCListMNE> < AdmittingPhyMNE>f pt admit dr morrow</AdmittingPhyMNE> <AttendingPhyMNE>f pt attend dr omrrow</AttendingPhyMNE> <ConsultingPhyMNE>f pt consult dr morrow</ConsultingPhyMNE> <FamilyPhyMNE>f pt fam dr morrow</FamilyPhyMNE> <OtherPhyMNE>f pt other dr morrow</OtherPhyMNE> < PrimaryPhyMNE>f pt prim care dr morrow</PrimaryPhyMNE> <ReferringPhyMNE>f pt referring dr morrow</ReferringPhyMNE> Patient Name: KVNG NAVA Unit Number: [id number] Dictated: 10/09/17745 Transcribed: 10/09/17745 PBS Printed Date/Time: [~ rep prt dt]/[~ rep prt tm] [~ rep ct labl] - [~ rep ct ivnm] [facility] [place] [address] Dictated: 10/09/17745 Transcribed: 10/09/17745 PBS Printed Date/Time: [~ rep prt dt]/[~ rep prt tm] [~ rep ct labl] - [~ rep ct ivnm] Patient: KVNG NAVA Address1: [address] [facility] Rec: [id number] Address2: Acct ID: [id number] [facility] Zip: [place] [address] Date: 1930 Sex: F Room/Bed: Ref Phy: [facility] SC: ISABELL Att Phy: Report #: [id number] Ines Phy: Vitor Johnson M.D. Test: VDLEU Admit Phy: Chief Digital Officer: ERIK Interpreting Phy: Thee Thorpe MD Diagnosis: COUGHING UP BLOOD Ordering Phy: Hazel Guerrero D.O. Service Date: 10/09/17 Admit Date: 10/09/17 MNE: [id number] CONF: DICTATED BY: Thee Thorpe MD]] CC: Hazel Guerrero D.O. CharlottevilleGabriel Christopher E., M.D. Endcc: [~ rep ct add3]] L VENOUS DOPP LOWER EXT UNILAT CLINICAL HISTORY: 87 years-old Female presenting with eval for dvt. TECHNIQUE: Real-time grayscale and color and spectral Doppler ultrasound imaging of the veins of the left lower extremity was performed. Compression and augmentation were also utilized. COMPARISON: 02/09/2011. FINDINGS: Left: Common femoral vein: Patent. Femoral vein: Patent. Greater saphenous vein: Patent. Popliteal vein: Patent. Calf veins: Limited visualization. Other: None. IMPRESSION: No evidence of deep venous thrombosis. Electronically signed by: Thee Thorpe M.D. 10/09/2017 7:47 AM Dictated Date/Time: 10/09/2017 7:46 AM The status of this report is Signed. Draft = Not yet reviewed or approved by Radiologist. Signed = Reviewed and approved by Radiologist. <AttendingPhy></AttendingPhy> <FamilyPhy>[facility]</FamilyPhy> <PrimaryPhy> Vitor Johnson M.D.</PrimaryPhy> <UnitNumber>[id number]</UnitNumber> < VisitNumber>[id number]</VisitNumber> <PatientName>KVNG NAVA</PatientName > <DateOfBirth>1930</DateOfBirth> <Location>[facility]</Location> <ServiceDate> 10/09/17</ServiceDate> <MNE>ESINDI</MNE> <OrderingPhy>Hazel Guerrero D.O.</ OrderingPhy> <OrderingPhyMNE>f rep ord dr morrow</OrderingPhyMNE> <DictatingPhyMNE> f rep dict dr morrow</DictatingPhyMNE> <CCListMNE>f rep ct mne</CCListMNE> < AdmittingPhyMNE>f pt admit dr morrow</AdmittingPhyMNE> <AttendingPhyMNE>f pt attend dr morrow</AttendingPhyMNE> <ConsultingPhyMNE>f pt consult dr morrow</ConsultingPhyMNE> <FamilyPhyMNE>f pt fam dr morrow</FamilyPhyMNE> <OtherPhyMNE>f pt other dr morrow</OtherPhyMNE> < PrimaryPhyMNE>f pt prim care dr morrow</PrimaryPhyMNE> <ReferringPhyMNE>f pt referring dr morrow</ReferringPhyMNE> Impression Assessment and Plan 87 y/o female with a history of CAD, STEMI s/p stent in 2014, HTN, HLD, h/o SVT , interstitial lung disease, bronchiectasis, COPD, RA, IBS, hypothyroidism, anxiety/depression, and GERD who presented to the ED on 10/09 with hemoptysis and nausea. Pt arrived tachycardic with HR in 90s, otherwise afebrile and VSS. On her chronic 2L. CXR shows right base pneumonia. LLE Doppler ultrasound negative for DVT. Chest CTA final read pending but preliminary read negative for PE. Troponin negative. Labs grossly unremarkable. R base PNA/HCAP--pt has history of multiple PNA as well as bronchiectasis and is from [facility], will cover with triple abx therapy -Admit to telemetry for cardiac monitoring, h/o SVT -Obtain blood cultures stat. Pt did receive 1 dose Levaquin in ED prior to BCX -Levaquin 750 mg IV qd -Vancomycin IV -Cefepime 2 gm IV q8h due to PCN allergy -Obtain sputum culture if able -O2 by protocol. Pt wears chronic 2L -DuoNebs QIDR prn SOB/wheezing -Continue Mucinex 600 mg PO BID -Await final read of chest CTA to ensure no PE -Hgb stable, at baseline. Continue to monitor for more hemoptysis CAD, h/o STEMI s/p stent, HLD, HLD, h/o SVT--stable -Obtain EKG now -Hold ASA for now due to hemoptysis -Continue atorvastatin 40 mg PO qd, lisinopril 2.5 mg PO qd and metoprolol tartrate 25 mg PO BID Interstitial lung disease, bronchiectasis, COPD--stable, no hypoxia, SOB or wheezing -Continue Dulera 2 puffs inh BID and Spiriva 2 puffs inh qd RA--stable -Continue prn Tylenol IBS -Continue Miralax q2d and Senna BID Hypothyroidism -Continue Synthroid 50 mcg PO qd Anxiety/depression -Continue Effexor 37.5 mg PO qd GERD -Prilosec converted to Protonix DVT prophylaxis -Enoxaparin 40 mg SC q24h -LUIS chandler and SCDs Code Status -Level V, DO NOT RESUSCITATE -[facility] records state she is full code, however when I asked pt, she states she wants to be DNR. Pt is alert and oriented x 3. Daughters were present during this discussion. Level of Care Telemetry Resuscitation Status DO NOT RESUSCITATE VTE Prophylaxis VTE Risk Assessment Done? Y/N: Yes Risk Level: Moderate Given or contraindicated: Enoxaparin (Lovenox)SQ, T.E.D. Stockings, SCD's
[2017-10-09 09:45] VITALS: BP 148/71; PULSE 111; TEMP 36.7; O2SAT 94; Ht 152.4 cm; Wt 70.6 kg
[2017-10-09] MEDS ORDERED: VANCOMYCIN CONSULT ACTIVE PRN (10:45)
[2017-10-09] MEDS ORDERED: VANCOMYCIN INJ 1,750 MG in SODIUM CHLORIDE 0.9% 500ML 500 ML IV ONE (11:00)
[2017-10-09 11:03] LABS: INR 1.1 (0.9-1.1); PROTHROMBIN TIME (PATIENT) 11.7 SECONDS (9.0-12.0)
[2017-10-09] MEDS: CEFEPIME IV 2,000 MG in SYRINGE 7.5 ML IV SCH ×2 (11:06→17:16)
--- NOTE | 2017-10-09 11:21 | Pharmacy Progress Note ---
Pharmacy Abx Initial Consult Date of Service Oct 09, 2017. Pharmacy Dosing Scope Date of Consult: 10/09/17 Consultation requested by: Heena Yepez PA-C Pharmacy is consulted to initiate Vancomycin IV dosing therapy, order appropriate labs and adjust drug dose/frequency. Subjective The patient is a 87 year old female admitted on Oct 09, 2017 at 08:28 from [facility] with HCAP Objective Height (Feet): 5 Height (Inches): 0.00 Weight (Kilograms): 72.720 Vital Signs (Past 12Hrs) Vital Signs Past 12 Hours Date Time Temp Pulse Resp B/P (MAP) Pulse Ox O2 Delivery O2 Flow Rate FiO2 10/09/17 09:45 36.7 111 18 148/71 94 Nasal Cannula 2.0 10/09/17 09:05 106 133/73 94 Nasal Cannula 10/09/17 07:03 93 18 129/69 91 Nasal Cannula 2.0 10/09/17 05:25 96 20 145/68 95 Nasal Cannula 2.0 10/09/17 03:49 89 16 120/46 95 Nasal Cannula 2.0 10/09/17 02:34 88 21 124/65 95 Nasal Cannula 2.0 10/09/17 01:35 96 Nasal Cannula 2.0 10/09/17 01:35 91 Room Air 10/09/17 01:27 37.1 97 24 138/67 91 Nasal Cannula 2.0 10/09/17 01:25 94 Lab Results (24Hrs) Test 10/09/17 01:30 10/09/17 02:54 10/09/17 10:29 10/09/17 11:02 White Blood Count 10.39 Red Blood Count 4.21 Hemoglobin 10.4 Hematocrit 33.6 Mean Corpuscular Volume 79.8 Mean Corpuscular Hemoglobin 24.7 Mean Corpuscular Hemoglobin Concent 31.0 Platelet Count 254 Mean Platelet Volume 10.4 Neutrophils (%) (Auto) 81.3 Lymphocytes (%) (Auto) 9.3 Monocytes (%) (Auto) 6.5 Eosinophils (%) (Auto) 2.5 Basophils (%) (Auto) 0.1 Neutrophils # (Auto) 8.44 Lymphocytes # (Auto) 0.97 Monocytes # (Auto) 0.68 Eosinophils # (Auto) 0.26 Basophils # (Auto) 0.01 RDW Standard Deviation 53.7 RDW Coefficient of Variation 18.4 Immature Granulocyte % (Auto) 0.3 Immature Granulocyte # (Auto) 0.03 Sodium Level 138 Potassium Level 4.2 Chloride Level 104 Carbon Dioxide Level 27 Anion Gap 7.0 Blood Urea Nitrogen 16 Creatinine 0.65 Est Creatinine Clear Calc Drug Dose 52 Estimated GFR () 91.2 Estimated GFR (Non- 78.7 BUN/Creatinine Ratio 25.2 Random Glucose 114 Calcium Level 8.4 Total Bilirubin 0.4 Aspartate Amino Transferase (AST) 20 Alanine Aminotransferase (ALT) 31 Alkaline Phosphatase 92 Troponin I < 0.015 Pro-B-Type Natriuretic Peptide 197 Total Protein 6.6 Albumin 2.8 Globulin 3.8 Albumin/Globulin Ratio 0.7 D-Dimer 1730 Erythrocyte Sedimentation Rate Pending Prothrombin Time 11.7 Prothrombin Time INR 1.1 C-Reactive Protein Pending Procalcitonin Pending Micro Results Date/Time Source Procedure Growth Status 10/09/17 10:45 Nasal MRSA DNA Surveillance Screen Pending Received Risk Factors for Resistance * Resident in a long-term or extended-care facility Assessment & Plan Assessment 87 year old female resident of [facility], admitted for HCAP, starting IV Vancomycin, Levaquin, Cefepime. Plan Vancomycin IV for treatment of HCAP Vancomycin IV * Loading dose: 1750 mg (24 mg/kg) * Maintenance dose: 1000 mg IV (14 mg/kg) every 18 hours * Estimated pharmacokinetics: T1/2 = 14hrs, Justo = 0.048/hr, Vd = 0.7L/kg * Goal trough level for HCAP : 15 to 20 mcg/mL * Trough level ordered for 10/12/17, this will be after patient has received 3 total doses. Pharmacy will continue to follow and will adjust dose/frequency as necessary. Thank you.
[2017-10-09 11:30] VITALS: BP 128/72; PULSE 107; O2SAT 92
[2017-10-09] MEDS ORDERED: NURSING VERBAL MED ORDER ONE (11:30)
[2017-10-09] MEDS: METOPROLOL TARTRATE 25 MG TAB PO SCH ×2 (12:47→20:51)
[2017-10-09] MEDS: LISINOPRIL 2.5 MG TAB PO SCH (12:48)
[2017-10-09] MEDS: VENLAFAXINE HCL XR 37.5 MG CAPXR PO SCH (12:48)
[2017-10-09] MEDS: CEROVITE ADV FORMULA TAB PO SCH (12:49)
[2017-10-09] MEDS: DOCUSATE SODIUM/SENNA 50/8.6MG TAB PO SCH ×2 (12:49→20:50)
[2017-10-09] MEDS: ATORVASTATIN 40 MG TAB PO SCH (12:49)
[2017-10-09] MEDS: MAGNESIUM OXIDE 400 MG TAB PO SCH ×2 (12:49→20:48)
[2017-10-09] MEDS: GUAIFENESIN 600 MG TABCR PO SCH ×2 (12:49→20:51)
[2017-10-09] MEDS: PANTOprazole SOD 40 MG TAB PO SCH (12:50)
[2017-10-09] MEDS ORDERED: POLYETHYLENE (MIRALAX) 17 GM PACK ONE (12:53)
[2017-10-09] MEDS: POLYETHYLENE (MIRALAX) 17 GM PACK PO SCH (13:00)
[2017-10-09 15:30] VITALS: BP 114/72; PULSE 93; TEMP 37.1; O2SAT 94
[2017-10-09] MEDS: ENOXAPARIN 40 MG/0.4 ML SYR SC SCH (17:15)
[2017-10-09 20:14] VITALS: BP 114/57; PULSE 96; TEMP 36.8; O2SAT 95
[2017-10-09] MEDS: ACETAMINOPHEN 325 MG TAB PO SCH (20:50)
[2017-10-10] VITALS (9 sets, daily range): BP systolic 106–129; BP diastolic 56–74; PULSE 84–102; TEMP 36.3–36.8; O2SAT 94–97
[2017-10-10] MEDS: CEFEPIME IV 2,000 MG in SYRINGE 7.5 ML IV SCH ×3 (03:21→18:52)
[2017-10-10] MEDS ORDERED: VANCOMYCIN INJ 1,000 MG in SODIUM CHLORIDE 0.9% 250ML 250 ML IV SCH (04:00)
[2017-10-10] MEDS: LEVOFLOXACIN / D5W 750 MG in PREMIXED IN D5W 150 ML IV SCH (05:52)
[2017-10-10] MEDS: LEVOTHYROXINE 50 MCG TAB PO SCH (05:52)
[2017-10-10 06:48] LABS: HEMATOCRIT 32.7 % (37-47); MEAN CELL VOLUME 80.9 fL (80-100); MEAN CORPUSCULAR HEMOGLOBIN 24.5 pg (25-34); MEAN CORPUSCULAR HGB CONC 30.3 g/dl (32-36); PLATELET COUNT 243 K/uL (130-400); RED BLOOD COUNT 4.04 M/uL (4.2-5.4); WHITE BLOOD COUNT 6.55 K/uL (4.8-10.8)
[2017-10-10 07:17] LABS: BUN/CREATININE RATIO 23.8 (10-20); CALCIUM 8.2 mg/dl (8.5-10.1); CREATININE 0.59 mg/dl (0.60-1.20); POTASSIUM 3.8 mmol/L (3.5-5.1)
[2017-10-10] MEDS: TIOTROPIUM BROMIDE 5 PUFF/90 MCG INH INH SCH (08:28)
[2017-10-10] MEDS: ATORVASTATIN 40 MG TAB PO SCH (08:29)
[2017-10-10] MEDS: VENLAFAXINE HCL XR 37.5 MG CAPXR PO SCH (08:29)
[2017-10-10] MEDS: METOPROLOL TARTRATE 25 MG TAB PO SCH ×2 (08:30→20:44)
[2017-10-10] MEDS: MAGNESIUM OXIDE 400 MG TAB PO SCH ×2 (08:30→20:45)
[2017-10-10] MEDS: CEROVITE ADV FORMULA TAB PO SCH (08:31)
[2017-10-10] MEDS: GUAIFENESIN 600 MG TABCR PO SCH ×2 (08:31→20:44)
[2017-10-10] MEDS: LISINOPRIL 2.5 MG TAB PO SCH (08:32)
[2017-10-10] MEDS: PANTOprazole SOD 40 MG TAB PO SCH (08:32)
[2017-10-10] MEDS: DOCUSATE SODIUM/SENNA 50/8.6MG TAB PO SCH ×2 (08:32→20:46)
[2017-10-10] MEDS: ENOXAPARIN 40 MG/0.4 ML SYR SC SCH (08:33)
--- NOTE | 2017-10-10 11:21 | Hospitalist Progress Note ---
Hospitalist Progress Note Date of Service Oct 10, 2017. Subjective Pt evaluation today including: conversation w/ patient, conversation w/ family (at bedside), physical exam, chart review, lab review, review of studies, review of inpatient medication list Pain: None PO Intake: Tolerating PO diet Voiding: no voiding problems Patient reports feeling well. She is still having a productive cough mostly with green sputum, although she is still sometimes having blood tinged sputum. The hemoptysis seems improved from yesterday. She denies any weakness or fatigue. The patient denies fevers, chills, sweats, chest pain, palpitations, claudication, wheezing, shortness of breath, nausea, vomiting, abdominal pain, dysuria, hematuria, urinary retention, paralysis, weakness, numbness and tingling. Additional Comments: See HPI for pertinent positives and negatives. All other systems reviewed and negative. Objective Vital Signs Date Time Temp Pulse Resp B/P (MAP) Pulse Ox O2 Delivery O2 Flow Rate FiO2 10/10/17 08:26 36.7 99 20 129/74 (92) 95 Nasal Cannula 2.0 10/10/17 08:00 96 Nasal Cannula 2.0 10/10/17 04:00 Nasal Cannula 2.0 10/10/17 03:57 36.5 89 20 106/64 (78) 96 Nasal Cannula 2.0 10/10/17 00:00 Nasal Cannula 2.0 10/10/17 00:00 36.4 84 20 115/68 (84) 97 Nasal Cannula 2.0 10/09/17 20:14 36.8 96 20 114/57 (76) 95 Nasal Cannula 2.0 10/09/17 20:00 Nasal Cannula 2.0 10/09/17 16:15 Nasal Cannula 2.0 10/09/17 15:30 37.1 93 18 114/72 (86) 94 Nasal Cannula 2.0 10/09/17 12:45 Nasal Cannula 2.0 10/09/17 11:30 107 18 128/72 (90) 92 Nasal Cannula 2.0 Physical Exam Notes: General appearance: Well-developed, well-nourished, no apparent distress Head: Normocephalic, atraumatic Eyes: Normal inspection, PERRL, EOMI ENT: Normal ENT inspection, hearing grossly normal, pharynx normal Neck: Supple, no JVD, trachea midline Respiratory/Chest: +Decreased breath sounds in right base. Lungs clear to auscultation, no respiratory distress Cardiovascular: Regular rate & rhythm, no gallop, no murmur Abdomen/GI: Normal bowel sounds, non-tender, soft Extremities/Musculoskeletal: Normal inspection, no calf tenderness, no pedal edema Neurological/Psych: Alert, normal mood/affect, oriented x 3 Skin: Normal color, warm/dry, no rash Laboratory Results Last 24 Hours Test 10/10/17 06:16 White Blood Count 6.55 K/uL Red Blood Count 4.04 M/uL Hemoglobin 9.9 g/dL Hematocrit 32.7 % Mean Corpuscular Volume 80.9 fL Mean Corpuscular Hemoglobin 24.5 pg Mean Corpuscular Hemoglobin Concent 30.3 g/dl RDW Standard Deviation 55.0 fL RDW Coefficient of Variation 18.5 % Platelet Count 243 K/uL Mean Platelet Volume 10.0 fL Sodium Level 138 mmol/L Potassium Level 3.8 mmol/L Chloride Level 104 mmol/L Carbon Dioxide Level 28 mmol/L Anion Gap 5.0 mmol/L Blood Urea Nitrogen 14 mg/dl Creatinine 0.59 mg/dl Est Creatinine Clear Calc Drug Dose 57.0 ml/min Estimated GFR () 94.2 Estimated GFR (Non- 81.3 BUN/Creatinine Ratio 23.8 Random Glucose 120 mg/dl Calcium Level 8.2 mg/dl Diagnostic Results Reviewed the following studies and agree with interpretation as follows: Patient Name: KVNG NAVA Unit Number: [id number] Dictated: 10/09/17839 Transcribed: 10/09/17839 PBS Printed Date/Time: [~ rep prt dt]/[~ rep prt tm] [~ rep ct labl] - [~ rep ct ivnm] [facility] [place] [address] Dictated: 10/09/17839 Transcribed: 10/09/17839 PBS Printed Date/Time: [~ rep prt dt]/[~ rep prt tm] [~ rep ct labl] - [~ rep ct ivnm] Patient: KVNG NAVA Address1: [address] [place] [address] Rec: [id number] Address2: Acct ID: [id number] [facility] Zip: [id number] [id number] Date: 1930 Sex: F Room/Bed: Ref Phy: [facility] SC: ISABELL Catalan Phy: Report #: [id number] [facility] Phy: Vitor Johnson M.D. Test: CXPEA Admit Phy: Zoning Engineer: MEGHA Interpreting Phy: Thee Thorpe MD Diagnosis: COUGHING UP BLOOD Ordering Phy: Hazel Guerrero D.O. Service Date: 10/09/17 Admit Date: 10/09/17 MNE: [id number] CONF: DICTATED BY: Thee Thorpe MD]] CC: Hazel Guerrero D.O. [facility] Vitor Johnson M.D. Endcc: [~ rep ct add3]] (CHEST FOR PE) ANGIO WITH CLINICAL HISTORY: 87 years-old Female presenting with coughing up blood, clinical concern for pulmonary embolus.. TECHNIQUE: Multidetector CT angiography of the chest was performed after administration of intravenous contrast. 3-D volumetric and/or maximum intensity projection (MIP) images were subsequently reconstructed for review. IV contrast: 90 mL of Optiray 320. A dose lowering technique was used consistent with the principles of ALARA (as low as reasonably achievable). COMPARISON: 01/18/2016. CT DOSE (mGy.cm): The estimated cumulative dose is 501.15 mGy.cm. FINDINGS: Piece Marker Small Arms topogram: Unremarkable. Pulmonary vasculature: The study is adequate for assessment of the pulmonary vascular tree. No filling defect within the pulmonary arteries to suggest embolus. Main pulmonary artery is not enlarged. No flattening of the interventricular septum. No intracardiac intracardiac filling defect. No reflux of contrast into the hepatic veins. Remaining chest: On soft tissue windows, subcentimeter hypodense nodule in the right lobe of the thyroid. Subcentimeter calcified nodule in the left lobe of the thyroid. Multiple prominent subcentimeter mediastinal lymph nodes. Few prominent hilar lymph nodes also noted. Atherosclerosis of the aorta. Coronary artery calcification. Normal heart size. No pericardial or pleural effusion. Hepatic steatosis. Cholelithiasis. Moderate hiatal hernia. Debris noted in the esophagus. On lung windows, dependent nodular, groundglass, and reticular opacities. Bronchial wall thickening dependently. Scattered debris in subsegmental airways. On bone windows, degenerative changes of the bilateral glenohumeral joints, left greater than right. IMPRESSION: 1. No evidence of pulmonary embolus. 2. Dependent opacities with bronchial wall thickening raise concern for chronic aspiration. Given the nodular appearance of the dependent opacities, follow-up is recommended to exclude an underlying pulmonary neoplastic nodule. 3. Moderate hiatal hernia and debris in the esophagus. 4. Hepatic steatosis. 5. Cholelithiasis. Electronically signed by: Thee Thorpe M.D. 10/09/2017 8:48 AM Dictated Date/Time: 10/09/2017 8:40 AM The status of this report is Signed. Draft = Not yet reviewed or approved by Radiologist. Signed = Reviewed and approved by Radiologist. <AttendingPhy></AttendingPhy> <FamilyPhy>[facility]</FamilyPhy> <PrimaryPhy> Vitor Johnson M.D.</PrimaryPhy> <UnitNumber>[id number]</UnitNumber> < VisitNumber>[id number]</VisitNumber> <PatientName>KVNG NAVA</PatientName > <DateOfBirth>1930</DateOfBirth> <Location>C.[facility]OS[facility]</Location> <ServiceDate> 10/09/17</ServiceDate> <MNE>ESINDI</MNE> <OrderingPhy>Hazel Guerrero D.O.</ OrderingPhy> <OrderingPhyMNE>f rep ord dr morrow</OrderingPhyMNE> <DictatingPhyMNE> f rep dict dr morrow</DictatingPhyMNE> <CCListMNE>f rep ct cristhian</CCListMNE> < AdmittingPhyMNE>f pt admit dr morrow</AdmittingPhyMNE> <AttendingPhyMNE>f pt attend dr morrow</AttendingPhyMNE> <ConsultingPhyMNE>f pt consult dr morrow</ConsultingPhyMNE> <FamilyPhyMNE>f pt fam dr morrow</FamilyPhyMNE> <OtherPhyMNE>f pt other dr morrow</OtherPhyMNE> < PrimaryPhyMNE>f pt prim care dr morrow</PrimaryPhyMNE> <ReferringPhyMNE>f pt referring dr morrow</ReferringPhyMNE> Assessment and Plan 87 y/o female with a history of CAD, STEMI s/p stent in 2014, HTN, HLD, h/o SVT , interstitial lung disease, bronchiectasis, COPD, RA, IBS, hypothyroidism, anxiety/depression, and GERD who presented to the ED on 10/09 with hemoptysis and nausea. Pt arrived tachycardic with HR in 90s, otherwise afebrile and VSS. On her chronic 2L. CXR shows right base pneumonia. LLE Doppler ultrasound negative for DVT. Chest CTA final read pending but preliminary read negative for PE. Troponin negative. Labs grossly unremarkable. R base PNA/HCAP, pt has history of multiple PNA as well as bronchiectasis and is from [facility], will cover with triple abx therapy--improving -Admit to telemetry for cardiac monitoring, h/o SVT. No acute events overnight. Pt in sinus rhythm/sinus tachycardia with HR 80s-110s. -Levaquin 750 mg IV qd. Day # 2 -Cefepime 2 gm IV q8h due to PCN allergy. Day # 2 -D/C vancomycin. MRSA nasal swab negative -Obtain sputum culture if able -O2 by protocol. Pt wears chronic 2L, currently at baseline -DuoNebs QIDR prn SOB/wheezing -Continue Mucinex 600 mg PO BID -Chest CTA negative for PE on final reading -Hgb stable, at baseline. Continue to monitor for more hemoptysis Possible chronic aspiration -Chest CT shows dependent opacities with bronchial wall thickening which raise concern for chronic aspiration. Given the nodular appearance of the dependent opacities, follow-up is recommended to exclude an underlying pulmonary neoplastic nodule. -Speech therapy evaluate and treat CAD, h/o STEMI s/p stent, HLD, HLD, h/o SVT--stable -Hold ASA for now due to hemoptysis -Continue atorvastatin 40 mg PO qd, lisinopril 2.5 mg PO qd and metoprolol tartrate 25 mg PO BID Interstitial lung disease, bronchiectasis, COPD--stable, no hypoxia, SOB or wheezing -Continue Spiriva 2 puffs inh qd -Dulera non-formulary, switch to Advair BID RA--stable -Continue prn Tylenol IBS -Continue Miralax q2d and Senna BID Hypothyroidism -Continue Synthroid 50 mcg PO qd Anxiety/depression -Continue Effexor 37.5 mg PO qd GERD -Prilosec converted to Protonix DVT prophylaxis -Enoxaparin 40 mg SC q24h -LUIS chandler and [place] Code Status -Level V, DO NOT RESUSCITATE -[facility] records state she is full code, however when I asked pt, she states she wants to be DNR. Pt is alert and oriented x 3. Daughters were present during this discussion.
[2017-10-10] MEDS: FLUTICASONE/SALMETEROL 100/50 (ADVAIR) 14 PUFF/1 INHALER INH SCH (20:43)
[2017-10-10] MEDS: ACETAMINOPHEN 325 MG TAB PO SCH (20:46)
[2017-10-11] MEDS: CEFEPIME IV 2,000 MG in SYRINGE 7.5 ML IV SCH ×2 (03:07→12:14)
[2017-10-11 04:33] VITALS: BP 114/66; PULSE 76; TEMP 36.4; O2SAT 95
[2017-10-11] MEDS: LEVOTHYROXINE 50 MCG TAB PO SCH (05:45)
[2017-10-11] MEDS: LEVOFLOXACIN / D5W 750 MG in PREMIXED IN D5W 150 ML IV SCH (05:45)
[2017-10-11 07:01] LABS: HEMATOCRIT 30.8 % (37-47); MEAN CELL VOLUME 79.8 fL (80-100); MEAN CORPUSCULAR HEMOGLOBIN 24.9 pg (25-34); MEAN CORPUSCULAR HGB CONC 31.2 g/dl (32-36); MEAN PLATELET VOLUME 9.4 fL (7.4-10.4); PLATELET COUNT 249 K/uL (130-400); RED BLOOD COUNT 3.86 M/uL (4.2-5.4); WHITE BLOOD COUNT 5.23 K/uL (4.8-10.8)
[2017-10-11 07:31] LABS: BUN/CREATININE RATIO 22.2 (10-20); CALCIUM 8.2 mg/dl (8.5-10.1); CREATININE 0.59 mg/dl (0.60-1.20); POTASSIUM 3.8 mmol/L (3.5-5.1)
[2017-10-11 07:33] VITALS: BP 115/70; PULSE 91; TEMP 36.4; O2SAT 96
[2017-10-11 08:45] VITALS: BP 144/65; PULSE 102
[2017-10-11] MEDS: TIOTROPIUM BROMIDE 5 PUFF/90 MCG INH INH SCH (08:46)
[2017-10-11] MEDS: VENLAFAXINE HCL XR 37.5 MG CAPXR PO SCH (08:46)
[2017-10-11] MEDS: FLUTICASONE/SALMETEROL 100/50 (ADVAIR) 14 PUFF/1 INHALER INH SCH (08:46)
[2017-10-11] MEDS: PANTOprazole SOD 40 MG TAB PO SCH (08:47)
[2017-10-11] MEDS: POLYETHYLENE (MIRALAX) 17 GM PACK PO SCH (08:47)
[2017-10-11] MEDS: GUAIFENESIN 600 MG TABCR PO SCH (08:47)
[2017-10-11] MEDS: CEROVITE ADV FORMULA TAB PO SCH (08:47)
[2017-10-11] MEDS: DOCUSATE SODIUM/SENNA 50/8.6MG TAB PO SCH (08:47)
[2017-10-11] MEDS: METOPROLOL TARTRATE 25 MG TAB PO SCH (08:47)
[2017-10-11] MEDS: MAGNESIUM OXIDE 400 MG TAB PO SCH (08:47)
[2017-10-11] MEDS: LISINOPRIL 2.5 MG TAB PO SCH (08:48)
[2017-10-11] MEDS: ATORVASTATIN 40 MG TAB PO SCH (08:48)
[2017-10-11] MEDS: ENOXAPARIN 40 MG/0.4 ML SYR SC SCH (08:57)
[2017-10-11] MEDS ORDERED: LEVO1TAB35 PO (10:28)
--- NOTE | 2017-10-11 10:35 | Discharge Instructions ---
Discharge Instructions Date of Service Oct 11, 2017. Admission Reason for Admission: Pneumonia Discharge Discharge Diagnosis / Problem: Pneumonia Discharge Goals Goal(s): Decrease discomfort, Improve function, Increase independence Activity Recommendations Activity Level: Assistance Required Therapies: Speech Therapy (Recommend routine follow-up) . Additional Information Patient informed of condition: Yes Advance Directives: Yes DNR: Yes Level of Care: Skilled Communicable Disease: No Prognosis: Improving Oxygen at (LPM): 2 L/min Instructions / Follow-Up Instructions / Follow-Up 87 y/o female with a history of CAD, STEMI s/p stent in 2014, HTN, HLD, h/o SVT , interstitial lung disease, bronchiectasis, COPD, RA, IBS, hypothyroidism, anxiety/depression, and GERD who presented to the ED on 10/09 with hemoptysis and nausea. Pt arrived tachycardic with HR in 90s, otherwise afebrile and VSS. On her chronic 2L. CXR shows right base pneumonia. LLE Doppler ultrasound negative for DVT. Chest CTA final read pending but preliminary read negative for PE. Troponin negative. Labs grossly unremarkable. Pneumonia (HCAP) with H/O Interstitial Lung Disease/Bronchiectasis: - Initially placed on triple therapy with improvement and will complete 7 day course with Levaquin 750 mg daily - had dose today and will start oral pill on 10/12 - On baseline O2 of 2 L NC - Continue inhalers as previously prescribed Hemoptysis: - Likely in setting on pneumonia - will continue ASA therapy but continue to assess Possible Chronic Aspiration: - CT suggested possible findings of chronic aspiration - RESOLUTION SPECIALIST recommending the following -- The patient is safe to continue eating a regular diet, and may use straws when drinking liquids. It is recommended that the patient follow aspiration precautions for safe eating and drinking. These precautions include taking medications whole with water, 1 at a time if needed. The patient should sit fully upright in bed or in a chair during snacks and meals, and continue sitting upright for 30 minutes following eating or drinking. The patient should alternate liquids and solids during meals, taking 1 drink for every 1-2 bites of food. - Recommend continued routine follow-up with speech to continue monitoring Home Medications: - Continue as previously prescribed Code Status: -Level V, DO NOT RESUSCITATE - [facility] records state she is full code, however when asked pt on admission, she states she wants to be DNR. Pt is alert and oriented x 3. Daughters were present during this discussion. - Recommend development of POLST or updating advanced directives Current Hospital Diet Patient's current hospital diet: AHA Diet (Heart Healthy) Discharge Diet Recommended Diet: AHA Diet (Heart Healthy) Pending Studies Studies pending at discharge: no Physician Orders On Transfer POLST Discussion: without POLST completion Laboratory Results Lipid Panel Test 08/27/17 05:51 Range/Units Triglycerides Level 180 H 0-150 mg/dl Cholesterol Level 134 0-200 mg/dl HDL Cholesterol 45 mg/dl Cholesterol/HDL Ratio 3.0 LDL Cholesterol, Calculated 53 mg/dl Medical Emergencies . Who to Call and When: Medical Emergencies: If at any time you feel your situation is an emergency, please call 911 immediately. . Non-Emergent Contact Non-Emergency issues call your: Primary Care Provider Call Non-Emergent contact if: you have a fever, your pain is concerning you, you have any medication questions . . "Provider Documentation" section prepared by Jessica Jaramillo. . Core Measure Problem Core Measures: None
[2017-10-11 11:09] VITALS: BP 117/61; PULSE 95; TEMP 36.7; O2SAT 90
[2017-10-11 13:18] VITALS: BP 117/61; PULSE 95; TEMP 36.7; O2SAT 90
--- NOTE | 2017-10-11 14:06 | Discharge Summary ---
Discharge Summary Date of Service Oct 11, 2017. (Jessica Jaramillo PA-C) Discharge Summary Admission Date: Oct 09, 2017 at 08:28 Discharge Date: Oct 11, 2017 Discharge Disposition: [facility] facility Principal Diagnosis: HCAP Pneumonia Problems/Secondary Diagnoses: 1. Irritable Bowel Syndrome 2. Rheumatoid Arthritis 3. CAD S/P STEMI S/P Stent of LAD (2014) 4. HTN 5. HLD 6. SVT 7. COPD with Bronchiectasis 8. Hypothyroidism 9. Anxiety/Depression 10. GERD Immunizations: Have You Had Influenza Vaccine: Yes Influenza Vaccine Date: Sep 11, 2010 History of Tetanus Vaccine?: No History of Pneumococcal: Yes Pneumococcal Date: Aug 17, 2012 History of Hepatitis B Vaccine: No Procedures: (CHEST FOR PE) ANGIO WITH FINDINGS: Projects Manager topogram: Unremarkable. Pulmonary vasculature: The study is adequate for assessment of the pulmonary vascular tree. No filling defect within the pulmonary arteries to suggest embolus. Main pulmonary artery is not enlarged. No flattening of the interventricular septum. No intracardiac intracardiac filling defect. No reflux of contrast into the hepatic veins. Remaining chest: On soft tissue windows, subcentimeter hypodense nodule in the right lobe of the thyroid. Subcentimeter calcified nodule in the left lobe of the thyroid. Multiple prominent subcentimeter mediastinal lymph nodes. Few prominent hilar lymph nodes also noted. Atherosclerosis of the aorta. Coronary artery calcification. Normal heart size. No pericardial or pleural effusion. Hepatic steatosis. Cholelithiasis. Moderate hiatal hernia. Debris noted in the esophagus. On lung windows, dependent nodular, groundglass, and reticular opacities. Bronchial wall thickening dependently. Scattered debris in subsegmental airways. On bone windows, degenerative changes of the bilateral glenohumeral joints, left greater than right. IMPRESSION: 1. No evidence of pulmonary embolus. 2. Dependent opacities with bronchial wall thickening raise concern for chronic aspiration. Given the nodular appearance of the dependent opacities, follow-up is recommended to exclude an underlying pulmonary neoplastic nodule. 3. Moderate hiatal hernia and debris in the esophagus. 4. Hepatic steatosis. 5. Cholelithiasis. Consultations: 1. PT/OT (Jessica Jaramillo PA-C) Medication Reconciliation New Medications: Levofloxacin (Levaquin) 750 Mg Tab 750 MG PO DAILY for 4 Days, #4 TAB Start tomorrow 10/12. Continued Medications: Acetaminophen (Tylenol) 325 Mg Tab 650 MG PO QPM, TAB Acetaminophen (Tylenol) 325 Mg Tab 650 MG PO Q8 PRN for MILD PAIN, TAB Aspirin (Aspirin Chewable) 81 Mg Chew 81 MG PO DAILY Atorvastatin (Lipitor) 40 Mg Tab 40 MG PO DAILY, TAB Calcium Carbonate-Vitamin D (Oyst-Phillip D) 1 Tab Tab 1 TAB PO DAILY Cyclosporine Oph 0.05% (Restasis Oph 0.05%) Emul 1 DROP OPB AMHS Guaifenesin Ext Rel (Mucinex Ext Rel) 600 Mg Tab 600 MG PO Q12, TAB Levothyroxine Sodium (Levothyroxine Sodium) 50 Mcg Tab 50 MCG PO DAILY, TAB Lisinopril (Zestril) 2.5 Mg Tab 2.5 MG PO DAILY Magnesium Chloride (Mag64) 535 Mg Tab 535 MG PO BID Metoprolol Tartrate (Lopressor) (Lopressor) 25 Mg Tab 25 MG PO BID, TAB Mometasone Furoate-Formoterol (Dulera 100/5 Mcg) 1 Aer Aer 2 PUFFS INH BID Multiple Vitamins W/ Minerals (Cerovite Senior) 1 Tab Tab 1 TAB PO DAILY Nitroglycerin (Nitrostat) 0.4 Mg Tab 0.4 MG UT PRN, BTL Omeprazole (Prilosec) 20 Mg Capcr 20 MG PO BID, CAP Polyethylene (Miralax Powder Packet) 17 Gm Pack 17 GM PO Q2D, PACK Saline (Elida) 0.65 % Spr 1 SPRY [place] PRN Sennosides-Docusate Sodium (Senna Plus) 1 Tab Tab 1 TAB PO BID Tiotropium [place] (Spiriva Respimat) 1.25 Mcg/Act Aer 2 PUFFS INH QD, INHALER Venlafaxine Hcl (Venlafaxine Extended Rel) 37.5 Mg Cap 37.5 MG PO DAILY, CAP Discharge Exam Review of Systems: Constitutional: No fever, No chills ENT: No nasal symptoms, No sore throat, No trouble swallowing Respiratory: + cough, + sputum, No wheezing, No dyspnea on exertion, No dyspnea at rest Cardiovascular: No chest pain, No palpitations Abdomen: No pain, No nausea, No vomiting, No diarrhea, No constipation Musculoskeletal: No swelling, No calf pain Genitourinary - Female: No dysuria Hematologic / Lymphatic: No abnormal bleeding/bruising Integumentary: No rash Physical Exam: General Appearance: WD/WN, no apparent distress Neck: supple, no JVD, trachea midline Respiratory/Chest: lungs clear, normal breath sounds, no respiratory distress, no accessory muscle use, + decreased breath sounds (diminished at bases) Cardiovascular: regular rate, rhythm, no gallop, no murmur Abdomen / GI: normal bowel sounds, non tender, soft Extremities: no calf tenderness, no pedal edema Neurologic/Psychiatric: alert, oriented x 3 Skin: normal color, warm/dry (Jessica Jaramillo, VASQUEZ) Hospital Course ADMISSION: This is an 87 y/o female with a history of CAD, STEMI s/p stent in 2014, HTN, HLD, h/o SVT, interstitial lung disease, bronchiectasis, COPD, RA, IBS, hypothyroidism, anxiety/depression, and GERD who presented to the ED on with hemoptysis and nausea. The patient states that she had been in her normal health yesterday throughout the day until she developed some nausea last night, followed by hemoptysis with bright red blood. She denies this ever happening before, but one of her daughter states that she does occasionally cough up blood, and [facility] records state that she also had hemoptysis in May 2017. The patient says that she is no longer coughing up blood, but she is now coughing up green sputum. She denies any fevers, chills, sweats, chest pain, or shortness of breath. She wears 2L NC continuously. The patient denies fevers, chills, sweats, chest pain, palpitations, claudication, wheezing , shortness of breath, vomiting, abdominal pain, dysuria, hematuria, urinary retention, paralysis, weakness, numbness and tingling. HOSPITAL COURSE: Ms. Pham was admitted for Pneumonia with concern for HCAP given residency in [facility]. She improved with triple therapy of Levaquin, Cefepime, and Vancomycin. She will continue on Levaquin 750 mg daily to finish a 7 day course. She is currently on baseline O2 of 2 L by NC. Hemoptysis is resolved and possibly related to pneumonia and will continue her home ASA [address] suspicious for findings of chronic aspiration and recommending ongoing speech evaluation and treatment. Currently recommending regular diet with thin liquids but implementing aspiration precautions. Patient is currently afebrile and without leukocytosis and optimal for discharge to [facility]. Of note, on admission patient requested a DNR status which did not reflect in records at [facility]. Recommend POLST or updated advanced directives. This discussion of code status was in the presence of her daughters. Total Time Spent: Greater than 30 minutes This includes examination of the patient, discharge planning, medication reconciliation, and communication with other providers. (Jessica Jaramillo PA-C) i personally examined pt and verified all ham points w Linda Jaramillo PAC feeling better would like to return to SNF vitals noted breathing unlabored no pallor or icterus HAP vs aspiration pneumonia - improving. seems more likely HAP - finish levaquin. speech eval and treat for continuity at [facility] stable for return to SNF (Petros Montes De Oca D.O.) Discharge Instructions Please refer to the electronic Patient Visit Report (Discharge Instructions) for additional information. (Jessica Jaramillo, RUSSEL-C) Additional Copies To [facility]; Vitor Johnson M.D.
[2017-10-12] MEDS ORDERED: VANCOMYCIN TROUGH ONE (15:30)
== END 2017-10-11 14:00 | DRG 194 ==
LOC: EDBD 01:20 → C.EDA 01:21 → C.MED 08:28 → ENRESERV 09:11 → C.MED 10-10 15:56
PROVIDERS: ADMIT Hospitalist; ATTEND Family Medicine
DX: J18.9 Pneumonia, unspecified organism (principal); R04.2 Hemoptysis; I25.10 Atherosclerotic heart disease of native coronary artery without angina pectoris; I25.2 Old myocardial infarction; I10 Essential (primary) hypertension; E78.5 Hyperlipidemia, unspecified; J44.9 Chronic obstructive pulmonary disease, unspecified; E03.9 Hypothyroidism, unspecified; F41.9 Anxiety disorder, unspecified; F32.9 Major depressive disorder, single episode, unspecified; K21.9 Gastro-esophageal reflux disease without esophagitis; M06.9 Rheumatoid arthritis, unspecified; K58.9 Irritable bowel syndrome, unspecified; Z66 Do not resuscitate; Z79.82 Long term (current) use of aspirin; Z79.899 Other long term (current) drug therapy; Z95.5 Presence of coronary angioplasty implant and graft

== ENCOUNTER → 2017-11-16 | Outpatient (CLI) | payer OTHER ==
[~2017-11-16] MED LIST changes: +ACET-1311 PO; -ATRINS NEB; -BENZ1LOZ PO; +CALC250T2 PO; -CHOL100010 PO; -CLIN150C PO; -GEMF600T3 PO; +GUAI1TAB55 PO; +LEVO50TA6 PO; +LISI-789 PO; -LSN25 PO; +MAGN64TA4 PO; -MISCCAP80 PO; -MULTCHW PO; +MULTTAB52 PO; +NTRGSL/4 UT; -NXM/40 PO; -OMEG10007 PO; -OYST1TAB PO; -PLV75 PO; -PRED-301 PO; +PRLSR20 PO; +SALI0.657 NAE; +SENN1TAB65 PO; -SLWMEC PO; +TIOT1AER2 INH; -TRAM-10 PO; -VALA1TAB PO; -VENL-273 PO; +VENL37.593 PO
[2017-11-16 18:05] LABS: URINE APPEARANCE TURBID (CLEAR); URINE BILIRUBIN NEG (NEG); URINE COLOR DK YELLOW; URINE NITRITE NEG (NEG); URINE SPECIFIC GRAVITY 1.033 (1.000-1.030); UROBILINOGEN NEG (NEG); ZZURINE CULT IF INDIC CATH YES
[2017-11-16 18:28] LABS: MANUAL MICROSCOPIC REQUIRED? NO; REVIEW REQ? YES
== END ==
LOC: C.LABCC 17:19
DX: R30.0 Dysuria (principal); R35.0 Frequency of micturition

== ENCOUNTER → 2017-11-26 | Outpatient (CLI) | payer OTHER ==
[2017-11-26 09:25] LABS: BLOOD UREA NITROGEN 24 mg/dl (7-18); CARBON DIOXIDE 28 mmol/L (21-32); CREATININE 0.76 mg/dl (0.60-1.20); GLUCOSE 107 mg/dl (70-99); POTASSIUM 4.6 mmol/L (3.5-5.1); SODIUM 138 mmol/L (136-145)
== END ==
LOC: C.LABCC 08:56
PROVIDERS: ATTEND Internal Medicine
DX: N39.0 Urinary tract infection, site not specified (principal)

== ENCOUNTER → 2018-02-03 | Outpatient (CLI) | payer OTHER | LOC: C.LABCC 17:40 | PROVIDERS: ATTEND Internal Medicine | DX: R39.15 Urgency of urination (principal); R32 Unspecified urinary incontinence ==

== ENCOUNTER → 2018-02-22 | Outpatient (CLI) | payer OTHER | LOC: C.LABCC 07:51 | PROVIDERS: ATTEND Internal Medicine | DX: E03.9 Hypothyroidism, unspecified (principal) ==

== ENCOUNTER → 2018-03-16 | Outpatient (CLI) | payer OTHER ==
[2018-03-16 08:43] LABS: ALBUMIN 2.9 gm/dl (3.4-5.0); BLOOD UREA NITROGEN 16 mg/dl (7-18); CALCIUM 8.9 mg/dl (8.5-10.1); CARBON DIOXIDE 27 mmol/L (21-32); CREATININE 0.65 mg/dl (0.60-1.20); GLUCOSE 105 mg/dl (70-99); POTASSIUM 3.9 mmol/L (3.5-5.1); SODIUM 138 mmol/L (136-145)
[2018-03-16 08:47] LABS: ALKALINE PHOSPHATASE 92 U/L (45-117); ALT/SGPT 22 U/L (12-78); AST/SGOT 13 U/L (15-37); TOTAL PROTEIN 6.9 gm/dl (6.4-8.2)
[2018-03-16 08:49] LABS: HEMATOCRIT 29.4 % (37-47); HEMOGLOBIN 8.6 g/dL (12.0-16.0); MEAN CELL VOLUME 71.7 fL (80-100); MEAN CORPUSCULAR HGB CONC 29.3 g/dl (32-36); MEAN PLATELET VOLUME 10.2 fL (7.4-10.4); PLATELET COUNT 429 K/uL (130-400); RED CELL DISTRIBUTION WIDTH CV 18.7 % (11.5-14.5); RED CELL DISTRIBUTION WIDTH SD 49.1 fL (36.4-46.3); WHITE BLOOD COUNT 5.75 K/uL (4.8-10.8)
[2018-03-16 09:13] LABS: BASO % 0.3 %; BASO ABS # 0.02 K/uL (0-0.2); EOS % 4.5 %; EOS ABS # 0.26 K/uL (0-0.5); IG# 0.01 K/uL (0.00-0.02); LYMPH % 15.3 %; LYMPH ABS # 0.88 K/uL (1.2-3.4); MONO % 5.9 %; MONO ABS # 0.34 K/uL (0.11-0.59); NEUT % 73.8 %; NEUT ABS # 4.24 K/uL (1.4-6.5)
== END | disposition home or self-care (01) ==
LOC: C.LABCC 08:19
PROVIDERS: ATTEND Internal Medicine
DX: E78.5 Hyperlipidemia, unspecified (principal); Z79.899 Other long term (current) drug therapy

== ENCOUNTER → 2018-03-24 | Outpatient (CLI) | payer OTHER ==
[2018-03-24 08:24] LABS: HEMATOCRIT 29.5 % (37-47); HEMOGLOBIN 8.7 g/dL (12.0-16.0); MEAN CELL VOLUME 70.2 fL (80-100); MEAN CORPUSCULAR HEMOGLOBIN 20.7 pg (25-34); MEAN CORPUSCULAR HGB CONC 29.5 g/dl (32-36); PLATELET COUNT 398 K/uL (130-400); RED CELL DISTRIBUTION WIDTH CV 18.6 % (11.5-14.5); RED CELL DISTRIBUTION WIDTH SD 47.6 fL (36.4-46.3); WHITE BLOOD COUNT 5.72 K/uL (4.8-10.8)
== END | disposition home or self-care (01) ==
LOC: C.LABCC 07:53
PROVIDERS: ATTEND Internal Medicine
DX: D64.9 Anemia, unspecified (principal)

== ENCOUNTER → 2018-04-08 | Outpatient (CLI) | payer OTHER ==
[2018-04-08 08:57] LABS: HEMATOCRIT 27.9 % (37-47); HEMOGLOBIN 8.1 g/dL (12.0-16.0); MEAN CELL VOLUME 72.3 fL (80-100); MEAN PLATELET VOLUME 10.4 fL (7.4-10.4); PLATELET COUNT 358 K/uL (130-400); RED CELL DISTRIBUTION WIDTH SD 56.6 fL (36.4-46.3); WHITE BLOOD COUNT 5.77 K/uL (4.8-10.8)
[2018-04-08 09:14] LABS: BASO % 0.5 %; BASO ABS # 0.03 K/uL (0-0.2); EOS % 5.5 %; EOS ABS # 0.32 K/uL (0-0.5); IG# 0.01 K/uL (0.00-0.02); LYMPH % 18.9 %; LYMPH ABS # 1.09 K/uL (1.2-3.4); MONO % 10.4 %; NEUT % 64.5 %; NEUT ABS # 3.72 K/uL (1.4-6.5)
== END ==
LOC: C.LABCC 08:19
PROVIDERS: ATTEND Internal Medicine
DX: D64.9 Anemia, unspecified (principal)

== ENCOUNTER → 2018-07-06 | Outpatient (CLI) | payer OTHER ==
[2018-07-06 10:35] LABS: HEMOGLOBIN A1C 6.2 % (4.5-5.6)
== END ==
LOC: C.LABCC 08:54
PROVIDERS: ATTEND Internal Medicine
DX: E16.2 Hypoglycemia, unspecified (principal)

== ENCOUNTER → 2018-07-11 | Outpatient (CLI) | payer OTHER ==
[2018-07-11 09:08] LABS: MEAN CORPUSCULAR HGB CONC 31.1 g/dl (32-36); MEAN PLATELET VOLUME 10.7 fL (7.4-10.4); PLATELET COUNT 334 K/uL (130-400)
[2018-07-11 09:13] LABS: GLUCOSE 96 mg/dl (70-99)
[2018-07-11 09:14] LABS: BLOOD UREA NITROGEN 22 mg/dl (7-18); CARBON DIOXIDE 30 mmol/L (21-32); CREATININE 0.82 mg/dl (0.60-1.20); POTASSIUM 4.1 mmol/L (3.5-5.1); SODIUM 138 mmol/L (136-145)
[2018-07-11 09:21] LABS: BASO % 0.3 %; BASO ABS # 0.02 K/uL (0-0.2); EOS % 6.3 %; EOS ABS # 0.38 K/uL (0-0.5); HEMATOCRIT 42.4 % (37-47); HEMOGLOBIN 13.2 g/dL (12.0-16.0); IG# 0.01 K/uL (0.00-0.02); LYMPH % 19.8 %; MEAN CELL VOLUME 85.5 fL (80-100); MEAN CORPUSCULAR HEMOGLOBIN 26.6 pg (25-34); MONO % 7.9 %; MONO ABS # 0.48 K/uL (0.11-0.59); NEUT % 65.5 %; NEUT ABS # 3.96 K/uL (1.4-6.5); RED CELL DISTRIBUTION WIDTH CV 17.5 % (11.5-14.5); RED CELL DISTRIBUTION WIDTH SD 51.9 fL (36.4-46.3); WHITE BLOOD COUNT 6.05 K/uL (4.8-10.8)
== END ==
LOC: C.LABCC 07:57
PROVIDERS: ATTEND Internal Medicine
DX: L03.90 Cellulitis, unspecified (principal)